=== PATIENT | male | born 1945 | race Caucasian/White ===

== ENCOUNTER → 2023-08-14 07:47 | Outpatient (REF) | payer OTHER, SELFPAY | LOC: RCS 07:47 | PROVIDERS: ATTENDING PHYSICIAN Family Medicine | DX: R55 Syncope and collapse (principal) | CPT/HCPCS: 93306 ==

== ENCOUNTER 2025-04-03 21:38 | Observation (INO) | payer OTHER, SELFPAY ==
[2025-04-03 14:57] VITALS: BP 172/104
[2025-04-03 15:20] LABS: Urine Character Clear (Clear)
[2025-04-03 15:22] LABS: Hematocrit 40.7 % (39.0-52.0); Hemoglobin 14.1 g/dL (13.0-18.0); Mean Corp Hgb Conc. 34.6 g/dL (33.0-37.0); Mean Corpuscular Volume 88.9 fL (80.0-94.0); Nucleated Red Blood Cells % 0 % (-); Platelet Count 231 10^3/uL (130-400); Red Cell Dist. Width 12.6 % (11.5-14.5)
[2025-04-03 15:45] LABS: ALT (SGPT) 45 U/L (0-50); AST (SGOT) 56 U/L (17-59); Albumin 4.8 g/dl (3.5-5.0); Alkaline Phosphatase 91 U/L (38-126); Blood Urea Nitrogen 13 mg/dl (9-20); Calcium 9.8 mg/dl (8.4-10.2); Carbon Dioxide 27 mmol/L (22-30); Chloride 105 mmol/L (98-107); Glucose 108 mg/dl (70-99); Potassium 4.5 mmol/L (3.5-5.1); Sodium 139 mmol/L (135-145); Total Protein 7.5 g/dl (6.3-8.2); eGFR > 60.00
[2025-04-03 16:12] LABS: Urine White Cell 40-50 /HPF (0-5)
[2025-04-03 17:18] VITALS: BP 163/114
--- NOTE | 2025-04-03 18:01 | ED.GENMED ---
History of Present Illness
<Lisbeth Alexis NP - Last Filed: 04/03/25 23:51>
General
Chief Complaint: Urinary Symptoms
Source: patient and spouse
Exam Limitations: none
Time Seen by Provider: 04/03/25 17:48
Nursing documentation reviewed up to this point in time: agreed with
History of Present Illness
History of Present Illness:
Patient to ED with complaint of hematuria x 1 mos. He was seen by urologist after initial event and placed on antibiotic for UTI. Hematuria resoved. He was given an antibiotic to take if his symptoms return. He developed symptoms again 2 weeks
ago so he started back on antibiotic ( states amoxicillin). He was advised to have repeat urinalysis after completing antibiotic to be sure that infection cleared. States hematuria started today again so he came here. No hematuria since
arriving in ED. Denies fever/chills, n/v/d.
Past History
<iLsbeth Alexis NP - Last Filed: 04/03/25 23:51>
Past History
ED Past Medical History: HTN, Hypercholesterolemia and Other (She has a history of kidney stones )
ED Past Surgical History: Other (Patient has a history of hemorrhoidectomy, and kidney stone removal )
Social History
Personal:
Living: with family
Employment: Employed
Review of Systems
<Lisbeth Alexis NP - Last Filed: 04/03/25 23:51>
Review of Systems
Allergies reviewed?: Yes
All Other Systems: ROS reviewed and negative except as documented in HPI and ROS
Constitutional: Reports no symptoms
EENT: Reports no symptoms
Respiratory: Reports no symptoms
Cardiac: Reports no symptoms
ABD/GI: Reports no symptoms
: Reports bleeding (hematuria)
Musculoskeletal: Reports no symptoms
Skin: Reports no symptoms
Neurological: Reports no symptoms
Psychiatric: Reports no symptoms
Phy Exam
<Lisbeth Alexis WIRELESS CONSTRUCTION MANAGER - Last Filed: 04/03/25 23:51>
General Physical Exam
General Presentation: well appearing and mild distress
General age: appears stated age
General Skin: warm and dry
General Habitus: normal
General Mental: alert
Cardiovascular Exam
Cardiovascular Exam: regular rate/rhythm
Pulmonary Exam
Pulmonary Exam: lungs clear and no respiratory distress
Gastrointestinal Exam
Gastrointestinal Exam: normal bowel sounds, non tender, soft, no organomegaly, non distended and no cva tenderness
Musculoskeletal Exam
Musculoskeletal Exam: full ROM and neuro vasc intact
Skin Exam
Skin Exam: normal color, warm/dry and no rash
Psychiatric Exam
Psychiatric Exam: normal mood/affect
Course
<Lisbeth Alexis WIRELESS CONSTRUCTION MANAGER - Last Filed: 04/03/25 23:51>
Orders/Labs/Results
Orders:
Orders
04/03/25 15:07
CMP [Comprehensive Metabolic Panel] Urgent
Complete Blood Count/With Diff Urgent
Urinalysis Reflex To Culture Urgent
Date Specimen was Collected: 04/03/25
Time Specimen was Collected: 15:01
Urine Microscopic Reflex Cult Urgent
Urine Culture Urgent
CAROLANN Source: U
Specimen Description:
Obtained by: Random
Date Specimen was Collected: 04/03/25
Time Specimen was Collected: 15:01
04/03/25 17:54
Bladder Scan- Treatment ONCE
04/03/25 17:55
CT Abd/pel Without Iv Or Oral Urgent
Comment:
Reason For Exam: ppain, urinary retention, hx kidney stones
04/03/25 20:01
Cefepime HCl [Maxipime] 2,000 mg IV NOW STA
04/03/25 20:13
Sterile Water [Sterile Water For Injection] 10 ml .ROUTE .[facility]
04/03/25 20:54
Admit/Transfer Patient As Directed
Co-Sign Provider:
Level of Care: Observation services
Assign to:: Medical/Surgical
Physician / Group: Cecy Marcelo
Diagnosis: hematuria, UTI
PRN Pain Medication Management As Directed
May give lesser potent ordered pain med per pt: Yes
preference::
Protocol:: Medication orders for pain may be administered in a
manner that supports deferring to patient preference
when the pt is:
- Requesting an ordered lesser potent pain medication.
Least to most potent pain medications are defined
as: acetaminophen < NSAID < tramadol < opioids
(morphine, oxycodone, hydromorphone).
- Requesting a lesser dose of the same medication IF
ORDERED.
- Requesting a less intrusive route of administration
if both routes are prescribed by the provider (PO <
IV).
04/03/25 20:55
Code Status As Directed
Resuscitation Status: Do not resuscitate
Reached after discussion with pt or family/Healthcare POA: Yes
Decision communicated with: patient and spouse
04/03/25 20:56
DNR Bracelet Application ONCE
04/03/25 22:19
0.9% Sodium Chloride 1000 ml [Nss] 1,000 ml IV 125 mls/hr
Acetaminophen [Tylenol] 650 mg PO Q4HPRN PRN
04/03/25 22:19
UROLOGY CONSULT Routine
Consulting Provider: Liban Day
Was physician already notified: Yes
Activity As Directed
Activity Level: As Tolerated
Intake/ Output As Directed
Frequency: Per unit guidelines
Okay to Shower As Directed
Strain Urine As Directed
Vital Signs As Directed
Frequency: Per unit guidelines
DX Deep Vein Thrombosis Video Routine
04/04/25 Breakfast
Regular
At Your Request: Full Participation
Does patient need a safe tray?: No
Basic Metabolic Panel IN AM
Complete Blood Count/No Diff IN AM
04/04/25 08:00
Cetirizine HCl [Zyrtec] 10 mg PO DAILY
Lisinopril [Zestril] 20 mg PO DAILY
Tamsulosin [Flomax] 0.4 mg PO DAILY
04/04/25 18:00
Atorvastatin [Lipitor] 10 mg PO QPM
Enoxaparin Sodium [Lovenox] 40 mg SC QPM
Finasteride [Proscar] 5 mg PO QPM
tadalafil [Cialis] 5 mg PO QPM
Abnormal Lab Results
04/03/25
15:07
RBC 4.58 L 10^6/uL
(4.70-6.10)
Absolute Monos (auto) 0.7 H 10^3/uL
(0.1-0.6)
Glucose 108 H mg/dl
(70-99)
Ur Occult Blood Reflex 2+ A
(Negative)
Leukocyte Esterase Rfl 3+ A
(Negative)
Urine RBC 7-10 A /HPF
(0-2)
Urine WBC (Reflex) 40-50 A /HPF
(0-5)
Urine Bacteria (Reflex) Few A
(Negative)
Urine Albumin (Reflex) 2+ A
(Neg - Trace)
04/03/25 15:07
04/03/25 15:07
Vital Signs
Initial and Last Documented VS:
Initial Vital Signs
Temp Pulse Resp BP Pulse Ox
98.2 F 108 20 172/104 96
04/03/25 14:57 04/03/25 14:57 04/03/25 14:57 04/03/25 14:57 04/03/25 14:57
Last Documented Vital Signs
Temp Pulse Resp BP Pulse Ox
98.3 F 118 18 146/90 96
04/03/25 23:00 04/03/25 23:00 04/03/25 23:00 04/03/25 23:00 04/03/25 23:00
<Bill Ludwig, DO - Last Filed: 04/03/25 20:12>
Orders/Labs/Results
Orders:
Orders
04/03/25 15:07
CMP [Comprehensive Metabolic Panel] Urgent
Complete Blood Count/With Diff Urgent
Urinalysis Reflex To Culture Urgent
Date Specimen was Collected: 04/03/25
Time Specimen was Collected: 15:01
Urine Microscopic Reflex Cult Urgent
Urine Culture Urgent
CAROLANN Source: U
Specimen Description:
Obtained by: Random
Date Specimen was Collected: 04/03/25
Time Specimen was Collected: 15:01
04/03/25 17:54
Bladder Scan- Treatment ONCE
04/03/25 17:55
CT Abd/pel Without Iv Or Oral Urgent
Comment:
Reason For Exam: ppain, urinary retention, hx kidney stones
04/03/25 20:01
Cefepime HCl [Maxipime] 2,000 mg IV NOW STA
04/03/25 20:13
Sterile Water [Sterile Water For Injection] 10 ml .ROUTE .[facility]
04/03/25 20:54
Admit/Transfer Patient As Directed
Co-Sign Provider:
Level of Care: Observation services
Assign to:: Medical/Surgical
Physician / Group: Cecy Marcelo
Diagnosis: hematuria, UTI
PRN Pain Medication Management As Directed
May give lesser potent ordered pain med per pt: Yes
preference::
Protocol:: Medication orders for pain may be administered in a
manner that supports deferring to patient preference
when the pt is:
- Requesting an ordered lesser potent pain medication.
Least to most potent pain medications are defined
as: acetaminophen < NSAID < tramadol < opioids
(morphine, oxycodone, hydromorphone).
- Requesting a lesser dose of the same medication IF
ORDERED.
- Requesting a less intrusive route of administration
if both routes are prescribed by the provider (PO <
IV).
04/03/25 20:55
Code Status As Directed
Resuscitation Status: Do not resuscitate
Reached after discussion with pt or family/Healthcare POA: Yes
Decision communicated with: patient and spouse
04/03/25 20:56
DNR Bracelet Application ONCE
04/03/25 22:19
0.9% Sodium Chloride 1000 ml [Nss] 1,000 ml IV 125 mls/hr
Acetaminophen [Tylenol] 650 mg PO Q4HPRN PRN
04/03/25 22:19
UROLOGY CONSULT Routine
Consulting Provider: Liban Day
Was physician already notified: Yes
Activity As Directed
Activity Level: As Tolerated
Intake/ Output As Directed
Frequency: Per unit guidelines
Okay to Shower As Directed
Strain Urine As Directed
Vital Signs As Directed
Frequency: Per unit guidelines
DX Deep Vein Thrombosis Video Routine
04/04/25 Breakfast
Regular
At Your Request: Full Participation
Does patient need a safe tray?: No
Basic Metabolic Panel IN AM
Complete Blood Count/No Diff IN AM
04/04/25 08:00
Cetirizine HCl [Zyrtec] 10 mg PO DAILY
Lisinopril [Zestril] 20 mg PO DAILY
Tamsulosin [Flomax] 0.4 mg PO DAILY
04/04/25 18:00
Atorvastatin [Lipitor] 10 mg PO QPM
Enoxaparin Sodium [Lovenox] 40 mg SC QPM
Finasteride [Proscar] 5 mg PO QPM
tadalafil [Cialis] 5 mg PO QPM
Abnormal Lab Results
04/03/25
15:07
RBC 4.58 L 10^6/uL
(4.70-6.10)
Absolute Monos (auto) 0.7 H 10^3/uL
(0.1-0.6)
Glucose 108 H mg/dl
(70-99)
Ur Occult Blood Reflex 2+ A
(Negative)
Leukocyte Esterase Rfl 3+ A
(Negative)
Urine RBC 7-10 A /HPF
(0-2)
Urine WBC (Reflex) 40-50 A /HPF
(0-5)
Urine Bacteria (Reflex) Few A
(Negative)
Urine Albumin (Reflex) 2+ A
(Neg - Trace)
04/03/25 15:07
04/03/25 15:07
Vital Signs
Initial and Last Documented VS:
Initial Vital Signs
Temp Pulse Resp BP Pulse Ox
98.2 F 108 20 172/104 96
04/03/25 14:57 04/03/25 14:57 04/03/25 14:57 04/03/25 14:57 04/03/25 14:57
Last Documented Vital Signs
Temp Pulse Resp BP Pulse Ox
98.3 F 118 18 146/90 96
04/03/25 23:00 04/03/25 23:00 04/03/25 23:00 04/03/25 23:00 04/03/25 23:00
Davidlt;Lisbeth Alexis NP - Last Filed: 04/03/25 23:51>
*Radiology
Radiology exam reviewed: radiology read reviewed
*Pulse Oximetry
SaO2: 97
Oxygen Mode of Delivery: Room air
Patient hypoxic: no
*Critical Care Note
Total Time (30-74mins, 75-104mins- exclusive of procedures): Not Applicable
<Lisbeth Alexis NP - Last Filed: 04/03/25 23:51>
Update Note
Update Note:
Patient to ED with recurring UTI x 1 mos. He has been on 2 courses of antibiotic treatment (amoxicillin) without complete resolution. Reports episodes of hematuria. No hematuria in ED tonight. CT results reviewed, suspicious for pyelitis. Case
discussed [facility] Dr. Ludwig who also evaluated this patient. Will admit to hospitalist. ANtibiotics started in ED
ED Attending Note
<Lisbeth Alexis NP - Last Filed: 04/03/25 23:51>
-
Portions of this chart may have been created with voice recognition software.� Occasional wrong word or��sound alike� substitutions may have occurred due to the inherent limitations of voice recognition software.
<Bill Ludwig DO - Last Filed: 04/03/25 20:12>
ED Attending Note
Patient seen and examined by attending physician: Yes
I performed the substantive portion of visit, reviewed & personally made and approve the management plan that is documented in note by myself or CLYDE.: Yes
ED Attending Note:
Seen with WIRELESS CONSTRUCTION MANAGER examined independently 1 month of hematuria 3 courses of p.o. antibiotic from urology is having hematuria clot retention, dysuria no clot retention now urine noted CT noted reviewed inpatient versus outpatient treatment with the patient
shared decision making with him and his think is reasonable keep him in the hospital IV antibiotic consideration for specialty consultation
Discharge Plan
Departure
Patient Disposition: Admit
Date of Disposition: 04/03/25
Time of Disposition: 20:09
Presentation/result/management discussed w/ accepting MD/DO: Hospitalist
Patient with high blood pressure during this ER visit?: No
Condition: Fair
Covid-19: Not Applicable
Discharge Problem:
Acute pyelitis
Interventions
Interventions:
*Risk Screen - Suicide Last Done: 04/03/25 14:57
*General Assessment Last Done: 04/03/25 14:57
*Neglect/Abuse Screening Last Done: 04/03/25 16:51
*ED- Fall Risk Assessment Last Done: 04/03/25 16:50
*ED COVID-19 Vaccine History Last Done: 04/03/25 16:50
*ED Influenza Vaccine History Last Done: 04/03/25 16:50
*Nursing Disposition Last Done: 04/03/25 22:31
ED-Male Genitourinary Assessment Last Done: 04/03/25 16:51
Discharge Date and Time
Discharge Date/Time: 04/03/25 22:32
[2025-04-03 19:46] VITALS: BP 148/115
[2025-04-03] MEDS: MAXIPIME 2000 MG IV (20:15)
--- NOTE | 2025-04-03 20:16 | HPS.HSE ---
Family Physician
-
Family Physician: Ck Benítez
Chief Complaint
-
hematuria
History of Present Illness
Patient is a 79-year-old male with past medical history significant for hypertension, hyperlipidemia and BPH who presented to [facility] ED for evaluation of hematuria. Patient and spouse at bedside who assisted in HPI. Patient has had hematuria with
clots on going for approximately 2 months, he has been following with Urology, Dr. Ivan, out patient and just finished his 3rd round of antibiotics for UTI. Patient reports some urgency and frequency but is not new and has been ongoing. Denies
any fever, chills, nausea, vomiting or diarrhea.
Medical History
Past Medical History
Past Medical History: Reports Other
Additional Past Medical History:
hypertension
hyperlipidemia
BPH
Past Surgical History: Reports Other
Additional Past Surgical History:
cystoscopy
TURP 09/2017
Robotic asst lap SANTOS repair of umbilical and multiple ventral hernias w mesh ([facility])
Social History
Tobacco: Former Smoker (quit 30 years ago )
Alcohol: Occasional
Drug: None
Personal:
Living: With Family
Employment: Employed
Family History
Family History: Other (Brother: DM)
Allergies / Home Medications
Allergies reflects when Allergies were last updated in [employer].
Home Medications with original date entered in [employer]
Allergy/Medication List:
Allergies
Allergy/AdvReac Type Severity Reaction Status Date / Time
aspirin Allergy Unknown Verified 04/03/25 14:59
pollen extracts Allergy nasal Verified 04/03/25 14:59
congestion
Home Medications
[id number] 300 mcg-K 60 mcg-lycop 600 mcg-lutein 300 mcg tablet (Centrum Silver Men) 1 ea PO DAILY 09/01/16
simvastatin 20 mg tablet 20 mg PO QPM 09/01/16
tadalafil 5 mg tablet (Cialis) 5 mg PO QPM 09/01/16
cetirizine 10 mg tablet 10 mg PO DAILY 09/16/17
finasteride 5 mg tablet 5 mg PO QPM 09/16/17
lisinopril 20 mg tablet 20 mg PO DAILY 04/03/25
tamsulosin 0.4 mg capsule 0.4 mg PO DAILY 04/03/25
Review of Systems
-
History Source: Patient
Constitutional: Denies Fever or Chills
EENT: Denies Sore Throat
Respiratory: Denies Cough or Trouble Breathing
Cardiac: Denies Chest Pain, Diaphoresis, Palpitations or Syncope
Abdomen/GI: Denies Abdominal Pain, Nausea, Vomiting or Diarrhea
: Reports Frequency and Urgency; Denies Dysuria or Flank Pain
Skin: Denies Rash
Neurological: Denies Dizzy, Headache, Weakness or Numbness
Physical Exam
Vital Signs
Vital Signs
Temp Pulse Resp BP Pulse Ox
98.7 F 109 18 148/115 95
04/03/25 19:46 04/03/25 19:46 04/03/25 19:46 04/03/25 19:46 04/03/25 19:46
Physical Exam
General: Well Developed, Well Nourished, No Apparent Distress, Comfortable and Conversant
HEENT: NormoCephalic, Moist mucous membranes, PERRLA, Nose Appears Normal and Ears Appear Normal
Respiratory: Clear and Non Labored Respirations; No Wheezes, Rales, Rhonchi or Crackles
Cardiac: S1/S2 and Regular Rhythm; No Murmur, Rub, Gallop or Peripheral Edema
Breast: Deferred by me
GI: Soft, Non Tender, Non Distended and Normal Bowel Sounds
Rectal: Deferred by Provider
Genito-urinary: Deferred by me
Musculoskeletal: No Clubbing, No Cyanosis and No Edema
Skin: Warm and IV/Catheter Site
Neuro: Awake and AO x 3
Hematologic/Lymphatic: No Lymphadenopathy
Psych: Calm and Intact Judgment/Insight
Laboratory Results
-
04/03/25 15:07
04/03/25 15:07
Laboratory Results
Total Bilirubin 1.0 mg/dl (0.2-1.3) 04/03/25 15:07
AST 56 U/L (17-59) 04/03/25 15:07
ALT 45 U/L (0-50) 04/03/25 15:07
Alkaline Phosphatase 91 U/L (38-126) 04/03/25 15:07
Data Reviewed
-
CT Scan: Report Reviewed by me (Abd/Pel (see report))
Lab Data: Labs Reviewed by me
Impression/Plan
-
IMPRESSION/PLAN:
#hematuria 2/2 UTI vs. obstructive stone
UA: indicative of UTI
Urine Cx: pending
Abd/Pel CT: 1.7 cm calculus in a left extrarenal pelvis with mild pelvis wall thickening and soft tissue stranding suspicious for superimposed infection/pyelitis. No caliectasis to suggest obstructive uropathy.
2 mm nonobstructing right renal calculus. 6 mm left renal nonobstructing calculus.
Small renal cysts.
No bladder calculus.
Prominent prostate gland. Lobular soft tissue thickening along the posterior margin of the bladder base. Presumably representing nodular prostate prominence, though limited by lack of contrast
material within the bladder lumen. Clinical correlation recommended. Consider further evaluation/follow-up nonemergent ultrasound as initial step for further evaluation.
Localized minor soft tissue stranding of the bladder wall; cannot exclude mild infection/inflammatory process.
Mild diverticulosis. No evidence of acute diverticulitis.
Fusiform aneurysmal dilatation of the ascending aorta measuring up to 4.7 cm. Mild diffuse ectasia of the abdominal aorta.
Mild emphysematous lung changes.
Cholelithiasis. No CT evidence of acute cholecystitis.
- Admit to med/surg for observation
- Urology Consult
- strain urine
- IVF NSS
- hold on antibiotics for now
- supportive care
#hypertension
- continue lisinopril
#hyperlipidemia
- continue simvastatin
#BPH
- continue finasteride and tamsulosin
Code status: DNR
DVT prophylaxis: SCDs
--- NOTE | 2025-04-03 20:39 | W.PN.UPDATE ---
Update Note
Progress Note Update
Patient seen in conjunction with nurse practitioner. I agree with the findings on history and physical and I concur with assessment and plan.
Briefly, this is a 79-year-old with past medical history significant for hypertension, hyperlipidemia, nephrolithiasis, presenting to the emergency department with recurrent episode of hematuria with passage of clots.
Patient has been followed by outpatient urology for hematuria and was found to have some kidney stones. He was recently treated with antibiotics for his hematuria and was told to obtain a urinalysis after completion of the antibiotic. Patient
completed 2-week course of antibiotics. He did get a urinalysis today. He also reports that after completion of his antibiotics his hematuria returned and is passing some clots. He denies dysuria. He denies flank pain. He denies urgency
incontinence. He denies any fevers or chills. He denies any flank pain.
In the emergency department he was afebrile, blood pressure was 148/100 with a pulse rate of 100 and he was satting 98% on room air.
CBC was completely unremarkable. Electrolytes BUN and creatinine were all normal.
CT of the abdomen and pelvis showing: Right kidney: 2 mm nonobstructing calculus in the mid to upper pole the right kidney. No right ureteral calculus. No hydronephrosis or obstructive uropathy. Lateral lower pole right renal cyst measuring 9 mm.
Medial upper pole right renal cyst measuring 2 cm.
Left kidney: Large calculus in an extrarenal pelvis which is slightly distended. Calculus measuring 1.7 cm. There is mild wall thickening of the renal pelvis and soft tissue stranding. Findings suspicious for superimposed infection/pyelitis.
Clinical correlation needed. Otherwise, no caliectasis to suggest obstruction. No other left ureteral calculus
Plan
79-year-old with recurrent hematuria likely on the basis of retained kidney stones. He has a large calculus in the extrarenal pelvis on the left kidney measuring about 1.7 cm with some wall thickening and soft tissue stranding suspicious for
superimposed infection/pyelitis. Patient also has nonobstructing kidney stones on the right. Despite finding on CT scan patient has no fevers, he has no leukocytosis, he has no flank pain he has no dysuria. He had just completed a course of
antibiotics with amoxicillin.
- Admit to [facility] observation
- Gentle hydration for now
- Strain urine
- Urine culture
- Monitor for fever, if shows signs of infection will start broad-spectrum intravenous antibiotic
- Urology consult
DVT prophylaxis�SCDs
CODE STATUS - full code
[2025-04-03 22:21] VITALS: BMI 27.8
--- NOTE | 2025-04-03 22:29 | PTCARENOTE ---
Pt arrived onto floor @2229. Pt AAOx3 and able to ambulate into room without assistance. Pt with no complaints of pain or SOB at this time. Pt oriented to room and call wheat; will continue to monitor
[2025-04-03] MEDS: NSS 1000 IV (22:42)
[2025-04-03 23:00] VITALS: BP 146/90
[2025-04-04 07:50] VITALS: BP 146/102
--- NOTE | 2025-04-04 07:50 | W.PN.HOSP.TC ---
Today's Communication/Plan
-
discharge
Assessment / Plan
Assessment / Plan
Physical Exam
General: no acute distress appears comfortable at this time
HEENT: NormoCephalic, Moist mucous membranes, Atraumatic
Respiratory: clear to auscultation b/l
Cardiac: S1/S2 and Regular Rhythm; No Murmur, Rub, Gallop or Peripheral Edema
GI: Soft, Non Tender, Non Distended and Normal Bowel Sounds
Musculoskeletal: No Clubbing, No Cyanosis and No Edema
Neuro: AOx3 conversant coherent
Psych: Calm
79M HTN HLD BPH here for evaluation hematuria likely 2/2 kidney stone. Patient has had intermittent hematuria with clots ongoing for approximately 2 months, he has been following with Urology, Dr. Ivan.
#hematuria likely 2/2 kidney stone possible associate UTI
Hematuria since resolved
Urine Cx: pending
Abd/Pel CT: 1.7 cm calculus in a left extrarenal pelvis with mild pelvis wall thickening and soft tissue stranding suspicious for superimposed infection/pyelitis. No caliectasis to suggest obstructive uropathy.
2 mm nonobstructing right renal calculus. 6 mm left renal nonobstructing calculus.
- Urology Consult appreciated stable for discharge on PO abx, planned for outpatient definitive stone removal in 1 week.
#Ascending Aorta Aneurysm 4.[address] noted on CT abd/pelvis
outpt follow up with Vascular recommended.
#hypertension
- continue lisinopril
#hyperlipidemia
- continue simvastatin
#BPH
- continue finasteride and tamsulosin
Code status: DNR
DVT prophylaxis: SCDs
Medically stable for discharge home with outpatient follow up recommendations.
discussed with patient and patient's Jess
Total Time Preparing Discharge __40 minutes including examination of the patient, summary of the hospital stay, instructions for continuing care to all relevant caregivers; and preparation of discharge records, prescriptions, and referral
forms if necessary.
Anticipated Discharge: Today
Subjective/Interval History
-
Date of Service: April 04, 2025
No acute distress, overall reports feeling well, hematuria resolved. Denies new acute issues. Eager to go home. Jess present during evaluation.
Objective Data
-
Labs:
Laboratory Results
04/04/25
07:22
WBC Pending
Hgb Pending
Hct Pending
Plt Count Pending
Sodium Pending
Potassium Pending
Chloride Pending
Carbon Dioxide Pending
BUN Pending
Creatinine Pending
Glucose Pending
Calcium Pending
Vital Signs:
Vital Signs
Temp Pulse Resp BP Pulse Ox
98.3 F 118 18 146/90 96
04/03/25 23:00 04/03/25 23:00 04/03/25 23:00 04/03/25 23:00 04/03/25 23:00
I&O
04/03/25 04/04/25 04/05/25
06:59 06:59 06:59
Intake Total 500 / 500
Output Total 350 / 350
Balance 150 / 150
[2025-04-04] MEDS: ZYRTEC 10 MG PO (07:56)
[2025-04-04] MEDS: ZESTRIL 20 MG PO (07:56)
[2025-04-04] MEDS: FLOMAX 0.4 MG PO (07:56)
[2025-04-04 08:16] LABS: Hematocrit 40.7 % (39.0-52.0); Hemoglobin 14.2 g/dL (13.0-18.0); Mean Corp Hgb Conc. 34.9 g/dL (33.0-37.0); Mean Corpuscular Volume 90.8 fL (80.0-94.0); Platelet Count 212 10^3/uL (130-400); Red Cell Dist. Width 12.7 % (11.5-14.5)
[2025-04-04 08:57] LABS: Blood Urea Nitrogen 11 mg/dl (9-20); Calcium 9.2 mg/dl (8.4-10.2); Carbon Dioxide 29 mmol/L (22-30); Chloride 106 mmol/L (98-107); Estimated Creatinine Clearance 65 ml/min; Glucose 101 mg/dl (70-99); Potassium 4.5 mmol/L (3.5-5.1); Sodium 140 mmol/L (135-145); eGFR > 60.00
--- NOTE | 2025-04-04 09:02 | W.PN.URO.CBU ---
Today's Communication / Plan
-
home today
Assessment / Plan
-
hemnaturia possble uti in non toxicpt with 1.7 cm extrarenal pelvis pt d/c with po abs will do definitice stone surgey in coming weeks
Diagnosis
-
Date of Service: April 04, 2025
-
Patient Diagnosis:painless hematuira lgstone lft extrarenal pelvis
Post Op Day:
Subjective
-
asx
Objective
-
Vital Signs
Temp Pulse Resp BP Pulse Ox
98.8 F 78 16 146/102 95
04/04/25 07:50 04/04/25 07:56 04/04/25 07:50 04/04/25 07:56 04/04/25 07:50
Intake and Output
04/03/25 04/04/25 04/05/25
06:59 06:59 06:59
Intake Total 500 / 500
Output Total 350 / 350
Balance 150 / 150
Intake:
IV fluids (Total) 500 / 500
Output:
Urine, Voided 350 / 350
Laboratory Results
04/04/25 07:22
04/04/25 07:22
Review of Systems
-
: Bleeding
Physical Exam
-
General - well developed, well nourished, no acute distress
Chest - clear bilaterally
Abdomen - soft, non-tender, positive bowel sounds, no CVAT, no incisional pain or distention
Genitalia - normal
Rectal - normal
Skin - warm & dry with no rash
Neuro - AOx3, no motor deficits
Extremities - no clubbing, no cyanosis, no edema
Incision - clean, dry
Dressing - clean, dry, intact
Care Review
Data Reviewed
Discussed with: Hospitalist
CT Scan: Image Pers Reviewed
[2025-04-04] MEDS: OMNICEF 300 MG PO (14:19)
--- NOTE | 2025-04-04 14:37 | W.DCSUMMARY ---
Discharge Summary
Discharge Data
Date of Admission: 04/03/25
Date of Discharge: 04/04/25
-
Pending Results: Yes
Additional Pending Results:
official culture result
Discharge Plan
-
Patient Disposition: Home (Routine Discharge)
Discharge Diagnosis/Procedures: Hematuria likely secondary to Kidney Stone, possible associate urinary tract infection
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
Condition: Fair
Diet: Regular
Activity: As tolerated
Driving Restrictions: As prior to admission
Bathing Restrictions: None
Activity Restrictions/Additional Instructions:
Follow up with primary care provider and Urology in 1 week of discharge. Follow up with vascular specialist in 2-4 weeks of discharge.
Cefdinir prescribed for possible urinary tract infection.
Please take medications as prescribed and follow up with primary care provider, urology, and/or other healthcare provider involved in your care for further adjustment to your medication regimen as necessary.
Referrals:
Ck Benítez MD [Family Provider, Family Practice]
Michael Ivan MD [Active, Urology]
Referral Note: call dr ivan [phone] to schedule stone surgery
Santos Mooney MD [Active, Vascular Surgery] - in two to four weeks
Prescriptions:
New
cefdinir 300 mg Capsule
300 mg PO Q12 Qty: 14 0RF
Continued
simvastatin 20 MG tablet
20 mg PO QPM
tadalafil [Cialis] 5 MG tablet
5 mg PO QPM
Centrum Silver Men 1 EACH tablet
1 ea PO DAILY
cetirizine 10 MG tablet
10 mg PO DAILY
finasteride 5 MG tablet
5 mg PO QPM
lisinopril 20 mg tablet
20 mg PO DAILY
tamsulosin 0.4 mg capsule
0.4 mg PO DAILY
Discharge Orders:
Discharge Patient (As Directed); Ordered 04/04/25
Ordered By: Dale Brooks
Discharge Date and Time
Print Language: ITALIAN
--- NOTE | 2025-04-04 14:58 | CM ---
AGUIL[employer] letter provided to patient, patient lives with spouse in a 1 story home, with no steps to enter, patient is independent with adl's and ambulation, no dme, patient still works, and drives.
PCP: Dr. Benítez
Pharmacy: [facility] in [place].
[2025-04-04 15:58] VITALS: BP 130/81
== END 2025-04-04 17:23 | disposition home or self-care (01) ==
LOC: 4 WEST ACU 21:38
PROVIDERS: Emergency Medicine; Nurse Practitioner Family; ADMITTING PHYSICIAN Internal Medicine; ATTENDING PHYSICIAN Internal Medicine; EMERGENCY PHYSICIAN Emergency Medicine; FAMILY PHYSICIAN Family Medicine; OTHER PHYSICIAN Specialist
DX: R31.9 Hematuria, unspecified (principal); N20.0 Calculus of kidney; E78.00 Pure hypercholesterolemia, unspecified; I10 Essential (primary) hypertension; N21.0 Calculus in bladder; N28.1 Cyst of kidney, acquired; K57.30 Diverticulosis of large intestine without perforation or abscess without bleeding; K80.20 Calculus of gallbladder without cholecystitis without obstruction; I44.4 Left anterior fascicular block; N40.1 Benign prostatic hyperplasia with lower urinary tract symptoms; N32.89 Other specified disorders of bladder; I71.21 Aneurysm of the ascending aorta, without rupture; Z66 Do not resuscitate; Z87.440 Personal history of urinary (tract) infections; Z87.442 Personal history of urinary calculi; Z90.79 Acquired absence of other genital organ(s); Z87.891 Personal history of nicotine dependence; Z83.3 Family history of diabetes mellitus; Z88.6 Allergy status to analgesic agent; Z79.899 Other long term (current) drug therapy
CPT/HCPCS: 51798; 74176; 80048; 80053; 81003; 81015; 85025; 85027; 87077; 87086; 87186; 93005; 96374; 99285; G0378

== ENCOUNTER 2025-04-17 06:23 | Day surgery (SDC) | payer OTHER, SELFPAY ==
[2025-04-17] VITALS (8 sets, daily range): BP systolic 137–171; BP diastolic 89–112
[2025-04-17] MEDS: NORMOSOL-R/PLASMALYTE-A 1000 IV (14:45)
[2025-04-17 16:07] LABS: Urine Character Cloudy (Clear)
[2025-04-17 16:21] LABS: Urine Red Blood Cell 0-2 /HPF (0-2); Urine Squamous Cell 0-2 /LPF (Few); Urine White Cell 50-60 /HPF (0-5)
== END 2025-04-17 19:48 | disposition home or self-care (01) ==
LOC: SDS 06:23
PROVIDERS: ATTENDING PHYSICIAN Specialist
DX: N20.0 Calculus of kidney (principal); N39.0 Urinary tract infection, site not specified; B95.2 Enterococcus as the cause of diseases classified elsewhere; N21.0 Calculus in bladder; N21.1 Calculus in urethra
CPT/HCPCS: 52318; 76000; 81003; 81015; 82365; 87086; C1894; J1580